=== PATIENT | male | born 1980 | race Caucasian/White ===

== ENCOUNTER 2021-01-13 18:22 | Emergency (ER) | payer OTHER ==
[~2021-01-13] VITALS: Ht 182.9 cm; Wt 99.8 kg
--- NOTE | 2021-01-13 18:58 | NUR ---
PT IS IN ROOM #2A. DR JESUS EVALUATED THE PT.
[2021-01-13] MEDS ORDERED: MORPHINE SULFATE 4 MG/1 ML DISP.SYRIN IV ONE (19:30)
[2021-01-13] MEDS ORDERED: MORPHINE SULFATE 4 MG/1 ML DISP.SYRIN ONE (19:34)
--- NOTE | 2021-01-13 19:39 | NUR ---
Xray at bedside.
[2021-01-13 19:45] LABS: BASOPHILS # (AUTO) 0.1 K/uL (0.0-8.0); BASOPHILS % (AUTO) 0.8 % (0.0-2.0); EOSINOPHILS # (AUTO) 0.1 K/uL (0.0-0.7); EOSINOPHILS % (AUTO) 1.2 % (0.0-7.0); HEMATOCRIT 41.7 % (36.7-47.1); HEMOGLOBIN 14.2 g/dL (12.5-16.3); LYMPHOCYTES # (AUTO) 1.5 K/uL (20.0-40.0); LYMPHOCYTES % (AUTO) 16.4 % (20.5-51.5); MEAN CORPUSCULAR HEMOGLOBIN 32.2 uug (23.8-33.4); MEAN CORPUSCULAR HGB CONC 34 g/dL (32.5-36.3); MEAN CORPUSCULAR VOLUME 94.1 fL (73.0-96.2); MONOCYTES # (AUTO) 1.1 K/uL (2.0-10.0); MONOCYTES % (AUTO) 11.5 % (0.0-11.0); NEUTROPHILS # (AUTO) 6.5 K/uL (1.8-8.9); NEUTROPHILS % (AUTO) 70.1 % (38.5-71.5); PLATELET COUNT (AUTO) 141 K/uL (152-348); RED BLOOD CELL COUNT(AUTO) 4.43 MIL/uL (4.06-5.63); WHITE BLOOD COUNT (AUTO) 9.2 K/uL (3.6-10.2)
[2021-01-13 19:48] LABS: CREATININE 0.9 mg/dL (0.6-1.3); POTASSIUM 3.5 mmol/L (3.5-5.1)
[2021-01-13 19:55] LABS: TOTAL PROTEIN, SERUM 7.7 g/dL (6.4-8.2)
[2021-01-13] MEDS ORDERED: HYDROMORPHONE 1 MG/1 ML DISP.SYRIN ONE ×2 (20:28→21:57)
[2021-01-13] MEDS ORDERED: HYDROMORPHONE 1 MG/1 ML DISP.SYRIN IV ONE ×2 (20:30→21:45)
--- NOTE | 2021-01-13 20:45 | NUR ---
Ultrasound at bedside.
[2021-01-13] MEDS ORDERED: HYDR-4209 PO ×2 (22:00→22:06)
[2021-01-13] MEDS ORDERED: IBUP-1955 PO ×2 (22:00→22:06)
[2021-01-13 22:13] LABS: *AMPHETAMINE, URINE NEGATIVE (NEGATIVE); *CANNABINOID, URINE POSITIVE (NEGATIVE); *COCCAINE, URINE POSITIVE (NEGATIVE); *OPIATE, URINE POSITIVE (NEGATIVE); *PHENCYCLIDINE SCREEN,URINE NEGATIVE (NEGATIVE)
--- NOTE | 2021-01-13 22:13 | NUR ---
Patient discharged to home in stable condition. Written and verbal after care instructions given. Patient verbalizes understanding of instructions. Stressed follow up or return to ER for worsening s/s. Patient out of ER with steady gait, no acute signs of distress, VSS, all belongings taken, IV site discontinued, provided copies of labs, xray, ultrasound, and CD of results, instructed not to drive, to be driven home by sister.
[2021-01-13 22:16] VITALS: BP 155/95
== END 2021-01-13 22:16 | disposition home or self-care (01) ==
LOC: ER 18:22
DX: S42.201A Unspecified fracture of upper end of right humerus, initial encounter for closed fracture (principal); F17.210 Nicotine dependence, cigarettes, uncomplicated; W18.30XA Fall on same level, unspecified, initial encounter; Y93.89 Activity, other specified; Y92.89 Other specified places as the place of occurrence of the external cause; R03.0 Elevated blood-pressure reading, without diagnosis of hypertension
CPT/HCPCS: 29105; 36415; 73030; 80053; 80307; 85025; 85730; 93971; 96374; 96375; 99284; 99406; J1170 ×2; J2270; A4663; J7030

== ENCOUNTER 2023-09-02 00:34 | Emergency (ER) | payer OTHER ==
[~2023-09-02 00:34] MED LIST: HYDR-4209 PO; IBUP-1955 PO
== END 2023-09-02 02:14 | disposition left against medical advice (07) ==
LOC: ER 00:35
DX: R52 Pain, unspecified (principal); Z53.21 Procedure and treatment not carried out due to patient leaving prior to being seen by health care provider

== ENCOUNTER 2024-09-11 22:15 | Emergency (ER) | payer OTHER ==
[~2024-09-11] VITALS: Ht 185.4 cm; Wt 90.7 kg
[2024-09-11] MEDS ORDERED: NITROGLYCERIN 0.4 MG/TAB BOTTLE SL ONE (23:14)
[2024-09-11] MEDS ORDERED: FAMOTIDINE. 20 MG/2 ML VIAL IV ONE (23:15)
[2024-09-11] MEDS: NITROGLYCERIN 0.4 MG/TAB BOTTLE SL STA (23:19)
[2024-09-11] MEDS: FAMOTIDINE. 20 MG/2 ML VIAL IV ONE (23:19)
[2024-09-11] MEDS: ONDANSETRON 4 MG/2 ML VIAL IV ONE (23:20)
[2024-09-11 23:22] LABS: BASOPHILS % (AUTO) 0.5 % (0.0-2.0); EOSINOPHILS # (AUTO) 0.1 K/uL (0.0-0.7); HEMATOCRIT 44.8 % (36.7-47.1); HEMOGLOBIN 15.8 g/dL (12.5-16.3); LYMPHOCYTES # (AUTO) 2.2 K/uL (0.8-4.8); LYMPHOCYTES % (AUTO) 24.9 % (20.5-51.5); MEAN CORPUSCULAR HEMOGLOBIN 31.9 uug (23.8-33.4); MEAN CORPUSCULAR HGB CONC 35 g/dL (32.5-36.3); MEAN CORPUSCULAR VOLUME 90.4 fL (73.0-96.2); MONOCYTES # (AUTO) 0.7 K/uL (0.1-1.30); MONOCYTES % (AUTO) 8.4 % (0.0-11.0); NEUTROPHILS # (AUTO) 5.8 K/uL (1.8-8.9); NEUTROPHILS % (AUTO) 65.2 % (38.5-71.5); PLATELET COUNT (AUTO) 127 K/uL (152-348); RED BLOOD CELL COUNT(AUTO) 4.95 MIL/uL (4.06-5.63); WHITE BLOOD COUNT (AUTO) 8.9 K/uL (3.6-10.2)
[2024-09-11 23:31] LABS: CALCIUM 8.6 mg/dL (8.5-10.1); CARBON DIOXIDE 25 mmol/L (21-32); CHLORIDE 97 mmol/L (98-107); CREATININE 0.7 mg/dL (0.6-1.3); GLUCOSE 95 mg/dL (74-106); POTASSIUM 3.4 mmol/L (3.5-5.1); SODIUM SERUM 137 mmol/L (136-145); UREA NITROGEN, BLOOD 14 mg/dL (7-18)
[2024-09-11 23:37] LABS: DIFFERENTIAL COMMENT 1
[2024-09-11 23:40] LABS: ALBUMIN 4.2 g/dL (3.4-5.0); ALKALINE PHOSPHATASE 87 U/L (50-136); BILIRUBIN,DIRECT 0.2 mg/dL (0.0-0.2); BILIRUBIN,TOTAL 0.7 mg/dL (0.2-1.0); TOTAL PROTEIN, SERUM 8.2 g/dL (6.4-8.2)
[2024-09-11 23:51] LABS: ALANINE AMINOTRANSFERASE 36 U/L (16-63); ASPARTATE AMINOTRANSFERASE 27 U/L (15-37)
[2024-09-12] MEDS ORDERED: AMLO-212 PO (02:15)
[2024-09-12] MEDS ORDERED: POTASSIUM CHLORIDE 20 MEQ TAB.PRT.SR PO ONE (02:15)
[2024-09-12] MEDS: AMLODIPINE 5 MG TABLET PO ONE (02:16)
[2024-09-12] MEDS: ONDANSETRON ODT 4 MG TAB.RAPDIS SL ONE (02:16)
[2024-09-12 02:26] VITALS: BP 154/103; O2SAT 97
== END 2024-09-12 03:14 | disposition home or self-care (01) ==
LOC: ER 22:15
DX: I10 Essential (primary) hypertension (principal); R07.89 Other chest pain; E87.6 Hypokalemia; R11.0 Nausea; R61 Generalized hyperhidrosis; E66.9 Obesity, unspecified; Z68.26 Body mass index [BMI] 26.0-26.9, adult
CPT/HCPCS: 80076; 80048; 85025; 85730; 84484 ×2; 36415 ×2; 71045; 93005; 99285; 96374; 96375; 80320; J3490; J2405; A4606; A4663; G0480; Q0162